=== PATIENT | female | born 1995 | race Caucasian/White ===

== ENCOUNTER 2018-07-13 05:49 | Emergency (ER) | payer OTHER, MEDICAID ==
[2018-07-13] MEDS: ONDANSETRON (ODT) 4 MG TAB ODT (07:05)
[2018-07-13] MEDS: ACETAMINOPHEN 500 MG TAB PO (07:05)
== END 2018-07-13 07:31 | disposition home or self-care (01) ==
LOC: FTE 05:49
DX: S01.01XA Laceration without foreign body of scalp, initial encounter (principal); Y04.2XXA Assault by strike against or bumped into by another person, initial encounter
CPT/HCPCS: 12001; 99283-25

== ENCOUNTER 2018-07-15 15:41 | Emergency (ER) | payer OTHER | END 2018-07-15 18:09 | disposition home or self-care (01) | LOC: FTE 15:41 | DX: S01.81XD Laceration without foreign body of other part of head, subsequent encounter (principal); X58.XXXD Exposure to other specified factors, subsequent encounter | CPT/HCPCS: 99281; Z7502 ==

== ENCOUNTER 2018-07-21 16:58 | Emergency (ER) | payer OTHER | END 2018-07-21 17:30 | disposition home or self-care (01) | LOC: FTE 16:58 | DX: Z48.02 Encounter for removal of sutures (principal) | CPT/HCPCS: 99281; Z7502 ==